=== PATIENT | female | born 1995 | race American Indian/Alaskan Native ===

== ENCOUNTER 2017-05-31 02:37 | Emergency (ER) | payer OTHER ==
--- NOTE | 2017-05-31 02:57 | C.PDOC ---
History Of Present Illness 22 year old female, whose PMHx includes asthma, presents to the ED for evaluation of chest tightness which began earlier tonight. Patient reports feeling short of breath at home and states she used her nebulizer with some relief. She denies fever, chills, cough. Chief Complaint (Nursing): Chest Pain History Per: Patient History/Exam Limitations: no limitations Onset/Duration Of Symptoms: Hrs Current Symptoms Are (Timing): Still Present Quality: Tightness Additional History Per: Patient Past Medical History Reviewed: Historical Data, Nursing Documentation, Vital Signs Vital Signs: Last Vital Signs Temp 98.6 F 05/31/17 02:45 Pulse 124 H 05/31/17 03:26 Resp 22 05/31/17 03:26 BP 141/76 05/31/17 03:26 Pulse Ox 100 05/31/17 03:42 - Medical History PMH: Asthma Surgical History: No Surg Hx Family History: States: Unknown Family Hx - Social History Hx Alcohol Use: No Hx Substance Use: No - Immunization History Hx Tetanus Toxoid Vaccination: No Hx Influenza Vaccination: No Hx Pneumococcal Vaccination: No Review Of Systems Constitutional: Negative for: Fever, Chills Cardiovascular: Positive for: Other (chest tightness) Respiratory: Positive for: Shortness of Breath. Negative for: Cough Physical Exam - Physical Exam Appears: Non-toxic, No Acute Distress Skin: Normal Color, Warm, Dry Head: Atraumatic, Normacephalic Eye(s): bilateral: Normal Inspection Oral Mucosa: Moist Neck: Supple Chest: Symmetrical, No Deformity, No Tenderness Cardiovascular: Rhythm Regular, No Murmur Respiratory: Decreased Breath Sounds (slight), No Rhonchi, No Wheezing Extremity: Normal ROM, Capillary Refill (less than 2 seconds ) Neurological/Psych: Oriented x3, Normal Speech, Normal Cognition Gait: Steady ED Course And Treatment ECG Interpretation: No Acute Changes Interpretation Of ECG: Sinus tachycardia, possible LAE, borderline tracings Rate From EC O2 Sat by Pulse Oximetry: 100 (on RA) Pulse Ox Interpretation: Normal - Radiology CXR: Interpreted by Ok CXR Interpretation: Yes: Infiltrates, Other (infiltrative infection-Right lower lung field) Progress Note: Labs, CXR, EKG ordered and reviewed. Albuterol INH administered. Patient refused blood work to be done. Disposition Counseled Patient/Family Regarding: Diagnosis - Disposition Referrals: [facility] [Outside] Disposition: HOME/ ROUTINE Disposition Time: 03:36 Condition: STABLE Prescriptions: Albuterol/Ipratropium [Combivent Respimat] 1 puff IH Q4 #1 puff Amoxicillin [Amoxil 500 mg Cap] 500 mg PO TID #20 cap Fluconazole [Diflucan] 200 mg PO DAILY #3 tab Instructions: Asthma (GEN), Upper Respiratory Infection (ED) Forms: [employer] (Hungarian) - POA Present On Arrival: None - Clinical Impression Clinical Impression: Asthma, Respiratory tract infection - Scribe Statement The provider has reviewed the documentation as recorded by the Scribe (Anette Hinkle) Provider Attestation: All medical record entries made by the Scribe were at my direction and personally dictated by me. I have reviewed the chart and agree that the record accurately reflects my personal performance of the history, physical exam, medical decision making, and the department course for this patient. I have also personally directed, reviewed, and agree with the discharge instructions and disposition.
[2017-05-31] MEDS ORDERED: Albuterol-Ipratrop 3 mg / 0.5 (3 ml) UD INH STA (02:59)
[2017-05-31] MEDS ORDERED: Albuterol-Ipratrop 3 mg / 0.5 (3 ml) UD ONE (03:04)
[2017-05-31 03:59] VITALS: BP 138/84; PULSE 110; RESP 24; TEMP 98.3; O2SAT 97
--- NOTE | 2017-05-31 08:17 | RAD ---
HISTORY: SOB COMPARISON: No prior. TECHNIQUE: Chest PA and lateral FINDINGS: LUNGS: No active pulmonary disease. PLEURA: No significant pleural effusion identified. No pneumothorax apparent. CARDIOVASCULAR: Normal. OSSEOUS STRUCTURES: No significant abnormalities. VISUALIZED UPPER ABDOMEN: Normal. OTHER FINDINGS: None. IMPRESSION: No active disease.
--- NOTE | 2017-06-01 11:47 | CARD ---
APPROVED REPORT EKG Measurement Heart [id number] <Conclusion> Sinus tachycardia Possible Left atrial enlargement Borderline ECG
== END 2017-05-31 04:03 | disposition home or self-care (01) ==
LOC: C.ER 02:37
DX: J45.909 Unspecified asthma, uncomplicated (principal); J98.8 Other specified respiratory disorders